=== PATIENT | male | born 2000 | race Hispanic/Latino ===

== ENCOUNTER 2021-07-24 22:20 | Emergency (ER) | payer OTHER ==
[~2021-07-24] VITALS: Ht 167.6 cm; Wt 70.8 kg
[2021-07-24] MEDS ORDERED: KETOROLAC TROMETHAMINE 30 MG/ML VIAL IM STA (22:46)
[2021-07-24] MEDS ORDERED: ONDANSETRON ODT4 MG PO (22:49)
[2021-07-24] MEDS ORDERED: DICYCLOMINE HCL20 MG PO (22:49)
[2021-07-24] MEDS ORDERED: ONDANSETRON HCL 4 MG ORAL DISINTEGRATING TAB PO ONE (23:00)
[2021-07-24] MEDS ORDERED: CEPHALEXIN500 M1 PO (23:01)
[2021-07-24 23:07] VITALS: BP 117/74
== END 2021-07-24 23:05 | disposition home or self-care (01) ==
LOC: FSED 22:33
DX: N39.0 Urinary tract infection, site not specified (principal); R10.33 Periumbilical pain; R11.0 Nausea; R19.7 Diarrhea, unspecified
CPT/HCPCS: 96372; 99282; J1885; Q0162